=== PATIENT | male | born 2000 | race Two or more races ===

== ENCOUNTER 2024-03-29 14:09 | Emergency (ER) | payer SELFPAY ==
[~2024-03-29] VITALS: Ht 165.1 cm; Wt 78.0 kg
[2024-03-29] MEDS: methylPREDNISolone SOD SUCC 125 MG/2 ML VL IV ONE (14:52)
[2024-03-29 15:00] VITALS: BP 109/62; PULSE 88; RESP 20; TEMP 97.9; O2SAT 97
== END 2024-03-29 15:12 | disposition home or self-care (01) ==
LOC: EDBD 14:09 → ER 14:09
DX: T63.441A Toxic effect of venom of bees, accidental (unintentional), initial encounter (principal); Y92.89 Other specified places as the place of occurrence of the external cause
CPT/HCPCS: 96374; 99283; J2919